=== PATIENT | female | born 1965 | race Caucasian/White ===

== ENCOUNTER 2021-02-09 10:20 | Emergency (ER) | payer OTHER, SELFPAY ==
--- NOTE | ~2021-02-09 | CT_ITS ---
EXAMINATION: CT LUMBAR SPINE WITHOUT CONTRAST CLINICAL INFORMATION: Status post fall down steps with right lower extremity pain. Low back pain. COMPARISON: No relevant prior imaging. 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 CT imaging of the lumbar spine was performed without contrast. Data was reformatted into multiplanar images at the acquisition workstation. This CT examination was performed using dose optimization techniques as appropriate, variously including the following: *Automated exposure control *Adjustment of mA and/or kV according to patient size (this includes techniques or standardized protocols for targeted exams where dose is matched to indication/reason for exam; i.e. extremities or head) *Use of iterative reconstruction technique DLP; 588 mGy-cm FINDINGS: Alignment is normal. Vertebral body heights are preserved. There is no acute fracture. There is loss of intervertebral disc height with associated sclerotic degenerative endplate changes and hypertrophic disc osteophyte spurring at L5-S1. Asymmetric disc osteophyte spurring in conjunction with facet degenerative change at L5-S1 causes moderate compression of the left L5 foraminal nerve root and mild mass effect on the right L5 foraminal nerve root. Otherwise no canal or neuroforaminal compromise within the lumbar spine. Limited visualization of the retroperitoneal anatomy reveals no abnormal finding. Psoas and paraspinal muscle groups are symmetric. CT/CT lumbar spine wo con IMPRESSION: There is no evidence of acute fracture and no posttraumatic spinal subluxation. Disc osteophyte spurring in conjunction with facet degenerative change at L5-S1 causes moderate compression of left L5 foraminal nerve root and mild compression of the right L5 foraminal nerve root. Otherwise no canal or neuroforaminal compromise.
[2021-02-09 11:13] VITALS: BP 123/58; BP 135/64; PULSE 56; PULSE 66; RESP 16; TEMP 36.2; O2SAT 98; BMI 30.9
[2021-02-09] MEDS: Ondansetron ODT 4 MG TAB.RAPDIS TRANSLINGU (11:40)
[2021-02-09] MEDS: Acetaminophen 325 MG TABLET 975 MG PO (11:46)
[2021-02-09] MEDS: diazePAM 5 MG TABLET 10 MG PO (11:46)
--- NOTE | 2021-02-09 12:50 | ED_ITS ---
HPI - Back Pain/Injury General Chief Complaint: Back Pain/Injury Stated Complaint: FALL ON ICE,BACK PAIN Time Seen by Provider: 02/09/21 10:59 Source: patient and EMS Mode of arrival: EMS Limitations: no limitations History of Present Illness HPI Narrative: 55-year-old female presenting to the ED with complaints of lower back/right lower back pain after she had a mechanical fall prior to arrival this morning when she left her front door her outside steps were slippery and she did not realize it and she fell down approximately 3-5 steps injuring her back. She denies head injury or loss of consciousness or neck injury. She denies being on any blood thinners. She denies any other injuries complaints or concerns. She reports that she was able to get up with her 's assistance to get back into her house although with walking she has severe pain. She denies any paresthesias or any urinary or bowel incontinence or retention. She denies any other symptoms complaints concerns or injuries at this time. 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) Timing: constant Severity: severe Similar Symptoms Previously: No Quality: sharp, aching, spasming and throbbing Location: lumbar spine and right lower back Radiation: none Exacerbating factors: movement, sitting upright, walking, coughing/sneezing and lifting Relieving factors: immobilization and supine Context: fall (Slipped on ice on her steps outside of her door way) Associated symptoms: denies other symptoms Work related injury: No Related Data Previous Rx's Medication Instructions Recorded diazepam 10 mg tablet (Valium) 10 mg PO Q8H PRN #14 tab 02/09/21 ibuprofen 800 mg tablet 800 mg PO Q8H PRN #14 tab 02/09/21 ondansetron 4 mg disintegrating 4 mg PO Q6-8H PRN #14 tab 02/09/21 tablet oxycodone 5 mg tablet 5 mg PO Q6H PRN #14 tab 02/09/21 Allergies Allergy/AdvReac Type Severity Reaction Status Date / Time No Known Allergies Allergy Unverified 10/23/19 14:47 Review of Systems Review of Systems: Constitutional : No trauma, No Weight loss, No Fever, No Chills, ENT/Mouth : No Hearing loss, No Ear Pain, No Nasal Congestion, No Sinus Pain, No Hoarseness, No sore throat, No Rhinorrhea, No Swallowing Difficulty Cardiovascular : No Chest Pain, No SOB Respiratory : No Cough, No Dyspnea Gastrointestinal : No Nausea, No Vomiting, No Diarrhea, No abdominal Pain, No Hematochezia, No Melena Genitourinary : No Dysuria, No Urinary Frequency, No Hematuria, No Urinary or Bowel Incontinence/retention Musculoskeletal : + Back pain/injury due to fall, No neck pain, No joint stiffness, No joint swelling Skin : No Skin Lesions, No rash or signs of infection Neuro : No Weakness, No radiation, No Numbness, No Paresthesias, No headache, no loss of bowel or bladder incontinence, no saddle anesthesia, Focal weakness, No radiation Denies history of IV drug usage. Yes all other systems are reviewed and are negative [facility] Past Medical History Attestation statement: The following information was validated with the patient. Medical History Bradycardia Sleep apnea Social History Social History Advance Directives: No Advance Directives Information Provided: No Patient : No Physical Exam Vital Signs: Vital Signs: Last Vital Signs Temp 97.1 F 02/09/21 11:13 Pulse 56 02/09/21 11:13 Resp 16 02/09/21 11:13 BP 123/58 L 02/09/21 11:13 Pulse Ox 98 02/09/21 11:13 BMI result Body Mass Index 30.9 vital signs have been reviewed as normal and appeared to be correct. Blood pressure normal. Heart rate normal. Respiration rate normal. Temperature normal. Oxygen saturation normal. Appearance: Alert. Oriented X3. No acute distress. Head: Normal external exam. Normocephalic. Atraumatic. No Rose signs noted. No raccoon eyes noted Eyes: PERRLA. EOMI. Conjunctiva and sclera normal. Eyelids normal. ENT: EAC normal. TM's Normal. No septal hematoma noted. No hemotympanum noted. Pharynx normal. Uvula midline. Moist mucous membranes. No trismus noted. No drooling noted. No muffled voice noted. Neck: Normal inspection. Neck supple. FROM. No adenopathy. Thyroid Normal. No meningeal signs. No neck mass noted. Nontender. CVS: Normal heart rate and rhythm. Heart sound normal. No murmurs noted. Pulses normal throughout. Respiratory: No respiratory distress. Painless inspiration. Breath sounds normal. No wheezes/rales/rhonchi noted. Chest nontender. No accessory muscle usage noted or decreased air movement noted. Abdomen: Soft and nontender. Bowel sounds normal in all 4 quadrants. No distention noted. No organomegaly noted. No visible injury noted. Back: No CVA tenderness. Full range of motion noted. No obvious deformities, or edema. Mild para-spinal muscular tenderness from lumbar region to coccyx. Full ROM in back and lower extremities. 5/5 strength hip extension/flexion, abduction, adduction. Mild Lumbar pain with hip flexion against resistance. Straight leg raise test negative on right; Straight leg raise test negative on left; Reflexes normal ankle and knee bilaterally; EHL motor strength normal bilaterally. No rashes/lesion/induration/fluctuance or signs infection noted. No abrasion/laceration/ecchymosis or obvious deformities noted. Skin: Skin warm and dry. Normal skin color. Normal skin turgor. No rashes/lesions/lacerations noted. Extremities: Extremities exhibit normal range of motion. Extremities nontender. Neuro: Oriented X 3. No motor deficit. No sensory deficit. Reflexes normal. Patient has a normal steady gait. Course Course Course Narrative: 11am - Pt c likely muscular pain, but could be herniated disc. Neuro exam shows no deficits. Not c/w AAA/epidural abscess/dissection.No high risk Hx (Incont, fever, immunosupp, recent surgery/LP, coag, signif trauma, wt loss, puls mass, hx/o Ca, TB, or IVDU) to warrant MRI today. Not c/w Pyelo/UTI/kidney stone. Not cauda equina syndrome. Will obtain a CT scan of lumbar spine to evaluate for possible fractures or any other acute processes provide symptomatic treatment with 4 mg of Zofran due to patient reports she gets nauseous with pain meds, 10 mg of Valium and 975 mg of Tylenol then re-evaluate. Reevaluation(s) Reevaluation #1: CT scan of lumbar spine without contrast revealed chronic changes no acute processes such as fractures therefore I printed the results and handed to the patient explained her that she should follow-up with her doctor for further treatment. She reports that she was in physical therapy approximately 1 year ago because of her sciatica. Otherwise will DC home with symptomatic treatment instructions return if any new or worsening symptoms. Patient understands agrees with this plan. Time: 13:18 MDM - Back Pain/Injury Medical Records Attestation: I reviewed the patient's medical records. Imaging Data CT scan lumbar spine without contrast: Attestation: I personally reviewed and interpreted this imaging study as follows: Radiologist's impression: FINDINGS: Alignment is normal. Vertebral body heights are preserved. There is no acute fracture. There is loss of intervertebral disc height with associated sclerotic degenerative endplate changes and hypertrophic disc osteophyte spurring at L5-S1. Asymmetric disc osteophyte spurring in conjunction with facet degenerative change at L5-S1 causes moderate compression of the left L5 foraminal nerve root and mild mass effect on the right L5 foraminal nerve root. Otherwise no canal or neuroforaminal compromise within the lumbar spine. Limited visualization of the retroperitoneal anatomy reveals no abnormal finding. Psoas and paraspinal muscle groups are symmetric. CT/CT lumbar spine wo con IMPRESSION: There is no evidence of acute fracture and no posttraumatic spinal subluxation. Disc osteophyte spurring in conjunction with facet degenerative change at L5-S1 causes moderate compression of left L5 foraminal nerve root and mild compression of the right L5 foraminal nerve root. Otherwise no canal or neuroforaminal compromise.? Discharge Plan Discharge Clinical Impression: Strain of lumbar region, Fall Patient Disposition: Home, Self-Care Instructions: Muscle Strain (ED), Lower Back Exercises (ED) Prescriptions: New ibuprofen 800 mg tablet 800 mg PO Q8H PRN (Reason: pain) Qty: 14 RF: 0 diazepam [Valium] 10 mg tablet 10 mg PO Q8H PRN (Reason: muscle spasm) Qty: 14 RF: 0 ondansetron 4 mg tablet,disintegrating 4 mg PO Q6-8H PRN (Reason: nausea and vomiting) Qty: 14 RF: 0 oxycodone 5 mg tablet 5 mg PO Q6H PRN (Reason: pain) Qty: 14 RF: 0 Referrals: Ariella Moon MD [Primary Care Provider] - 2 days Stand Alone Forms: Work/School Release Print Language: Upper Sorbian
--- NOTE | 2021-02-09 13:33 | PC.NURSE ---
Evaluated by provider. PLAN IS FOR DC HOME. PT AWAKE, ALERT AND ORIENTED X 3. SKIN WARM AND DRY. RESP UNLABORED. DENIES N/V. REPORTS MILD IMPROVEMENT FROM PAIN MEDICATION. NEUROS INTACT. AMBULATORY TO BR, SLOW/STEADY GAIT
== END 2021-02-09 13:36 | disposition home or self-care (01) ==
PROVIDERS: Emergency Provider Emergency Medicine; PCP Internal Medicine
DX: S39.012A Strain of muscle, fascia and tendon of lower back, initial encounter (principal); W00.0XXA Fall on same level due to ice and snow, initial encounter; Y93.9 Activity, unspecified; Y92.9 Unspecified place or not applicable; Y99.9 Unspecified external cause status
CPT/HCPCS: 72131; 99283; 99284

== ENCOUNTER 2024-05-06 13:19 | Outpatient (RCR) | payer OTHER, SELFPAY | END 2024-06-06 09:53 | disposition home or self-care (01) | LOC: HO.OT 13:19 | PROVIDERS: PCP Internal Medicine; Visit Provider Orthopaedic Surgery | DX: S56.19 Other injury of flexor muscle, fascia and tendon of other and unspecified finger at forearm level (principal) | CPT/HCPCS: 97110; 97140; 97165 ==